=== PATIENT | male | born 1945 | race Caucasian/White ===

== ENCOUNTER 2017-06-21 09:32 | Outpatient (CLI) | payer MEDICARE ==
--- NOTE | 2017-06-21 11:17 | RAD ---
FOUR VIEWS LUMBAR SPINE: Date: 06-21-17 History: Low back pain for weeks. Pain radiates down both legs. FINDINGS: There are five non-rib bearing lumbar type vertebral bodies. Multilevel osteophytes are seen. Facet d egenerative changes are seen in the lower lumbar spine. There is mild narrowing of the L4-5 and L5-S1 intervertebral disc spaces. No fracture is seen. There is trace retrolisthesis of L2 on L3. There is no significant change and degree of retrolisthesis between flexion and extension views of the lumbar spine. No additional level of subluxation is present. IMPRESSION: 1. Multilevel degenerative changes without evidence of an acute fracture. 2. Slight retrolisthesis of L2 on L3. POS: [facility]
== END 2017-06-21 09:33 | disposition home or self-care (01) ==
LOC: TBSIIMAG 09:32
PROVIDERS: ATTEND Surgery
DX: M54.5 Low back pain (principal); M47.896 Other spondylosis, lumbar region; M43.16 Spondylolisthesis, lumbar region
CPT/HCPCS: 72110

== ENCOUNTER 2017-07-05 11:30 | Day surgery (SDC) | payer MEDICARE ==
[2017-07-04 13:45] VITALS: BMI 25.8
[2017-07-05] MEDS ORDERED: Gadobenate Dimeglumine 529 MG/1 ML (20ML VIAL) ONE (13:21)
[2017-07-05] MEDS ORDERED: Midazolam HCl 2 mg/2 ml Vial ONE (13:56)
--- NOTE | 2017-07-05 15:26 | MRI ---
LUMBAR SPINE MRI WITH AND WITHOUT CONTRAST: Date: 07/05/17 HISTORY: Lumbar radiculopathy. FINDINGS: There is multilevel Schmorl's node formation involving end plates of the low thoracic and lumbar spin e. No evidence of acute marrow edema, acute compression fracture, or subluxation. There is an extradural in location, heterogeneous, partially cystic mass which abuts the posterior co nfines of the T12 vertebral body spanning the AP dimension of the vertebral body, approximately 2.4 c m in craniocaudal dimension x 9.0 mm in AP dimension. Cephalad aspect of the mass at the site of intr insic T2 signal hyperintensity reveals enhancement. There is associated posterior displacement and ma ss effect upon the distal thoracic spinal cord with moderate AP diameter narrowing of the vertebral c anal. This does produce direct contact upon the right ventral aspect of the spinal cord. L5-S1: There is no evidence of significant central canal narrowing. Disc osteophyte complex is present along with facet hypertrophy which results in mild narrowing of the bilateral neural foramina. L4-5: There is severe central canal stenosis due to broad based disc osteophyte complex. Moderate, right gr eater than left, neural foraminal stenosis present. L3-4: There is severe central canal stenosis due to broad based disc osteophyte. Moderate to severe bilater al neural foraminal stenosis present. L2-3: Moderate central canal stenosis as a result of broad based disc osteophyte. There is moderate right a nd mild to moderate left neural foraminal narrowing. L1-2: There is mild to moderate central canal stenosis due to disc osteophyte formation. No high grade fora janee compromise. IMPRESSION: 1. Heterogeneous, partially enhancing extradural mass at the anterior aspect of the vertebral ca nal, abutting the posterior confines of T12 vertebral body, which exerts mass effect upon the termina l spinal cord. Primary considerations would include neurogenic tumor or, alternatively, an atypical a ppearance of a meningioma. 2. Multilevel prominent degenerative change producing multilevel moderate to severe central canal an d neural foraminal stenosis. POS: [facility]
== END 2017-07-05 16:18 | disposition home or self-care (01) ==
LOC: SDC/OP 11:30
PROVIDERS: ATTEND Surgery
DX: M54.16 Radiculopathy, lumbar region (principal)
CPT/HCPCS: 36415; 72158; 82565; A9579; J2250

== ENCOUNTER 2017-09-03 08:58 | Outpatient (CLI) | payer MEDICARE ==
[2017-09-03 10:32] LABS: #Eosinphils 0.4 thou/uL (0.0-0.7); #Lymphocytes 1.5 thou/uL (1.20-3.40); #Monocytes 0.4 thou/uL (0.11-0.59); #Neutrophils 5.4 thou/uL (1.40-6.50); %Basophils 0.3 % (0.0-1.0); %Eosinophils 4.9 % (0.0-10.0); %Lymphocytes 19.9 % (21.0-51.0); %Monocytes 5.7 % (0.0-10.0); %Neutrophils 69.2 % (42.0-75.0); Hemoglobin 15.4 g/dL (14.0-18.0); Mean Corpuscular HGB CONC 33.5 g/dL (32.0-36.0); Mean Corpuscular Hemoglobin 31.7 pg (27.0-31.0); Mean Corpuscular Volume 94.8 fL (78.0-98.0); Mean Platelet Volume 8.6 fL (7.4-10.4); Platelet Count 216 thou/uL (130-400); Red Blood Cell (RBC) Count 4.86 mill/uL (4.70-6.10); White Blood Cell (WBC) Count 7.7 thou/uL (4.8-10.8)
[2017-09-03 10:41] LABS: INR-International Normal Ratio 0.9; PTT 28.9 SEC (22.9-36.1); Prothrombin Time 12.1 SEC (12.0-14.7)
[2017-09-03 10:44] LABS: Anion Gap 11 mmol/L (10-20); BUN (Urea Nitrogen) 18 mg/dL (8.4-25.7); Calc. Creatinine Clearance 0 mL/min (70-130); Calcium 9.5 mg/dL (7.8-10.44); Carbon Dioxide 29 mmol/L (23-31); Chloride 107 mmol/L (98-107); Estimated GFR-MDRD 87; Glucose 94 mg/dL (83-110); Potassium 4.4 mmol/L (3.5-5.1); Sodium 143 mmol/L (136-145)
== END 2017-09-03 08:59 | disposition home or self-care (01) ==
LOC: LABBT 08:58
PROVIDERS: ATTEND Surgery
DX: Z01.812 Encounter for preprocedural laboratory examination (principal); M48.062 Spinal stenosis, lumbar region with neurogenic claudication; M54.16 Radiculopathy, lumbar region
CPT/HCPCS: 80048; 85025; 85610; 85730

== ENCOUNTER 2017-09-12 13:26 | Day surgery (SDC) | payer MEDICARE ==
[2017-09-03 09:26] VITALS: BMI 25.8
[2017-09-12] MEDS ORDERED: CEFAZOLIN/Water 2 GM/20 ML SYRINGE ONE (14:19)
[2017-09-12] MEDS ORDERED: Bacitracin Zinc Ointment 30 gm TUBE ONE (16:27)
[2017-09-12] MEDS ORDERED: Sodium Chloride 0.9% 10 ML ONE (16:27)
[2017-09-12] MEDS ORDERED: Thrombin 5000 UNITS/5 ML VIAL ONE (16:27)
[2017-09-12] MEDS ORDERED: Fentanyl 250 MCG/5 ML VIAL ONE (16:36)
[2017-09-12] MEDS ORDERED: Midazolam HCl 2 mg/2 ml Vial ONE (16:36)
[2017-09-12] MEDS ORDERED: Morphine Sulfate 2 MG/ML SYRINGE SLOW IVP PRN (18:30)
[2017-09-12] MEDS ORDERED: HYDROmorphone 2 MG/ML VIAL SLOW IVP PRN (18:30)
[2017-09-12] MEDS ORDERED: Meperidine HCl/PF 25 MG/ML VIAL SLOW IVP PRN (18:30)
[2017-09-12] MEDS ORDERED: Promethazine HCl 25 MG/ML VIAL SLOW IVP PRN (18:30)
[2017-09-12] MEDS ORDERED: HYDROcodone/Acetaminophen 7.5/325 mg Tablet PO PRN (19:32)
[2017-09-12] MEDS ORDERED: Promethazine HCl 25 MG/ML VIAL IM PRN (19:32)
[2017-09-12] MEDS ORDERED: Mag-Al 1200 mg/1200 mg/30 ML UDCUP PO PRN (19:32)
[2017-09-12] MEDS ORDERED: Milk Of Magnesia 30 ML UDCUP PO PRN (19:32)
[2017-09-12] MEDS ORDERED: Acetaminophen 325 MG TAB PO PRN (19:32)
[2017-09-12] MEDS ORDERED: traMADol HCl 50 MG TAB PO PRN (19:32)
[2017-09-12] MEDS ORDERED: Bisacodyl 10 MG SUPP PR PRN (19:32)
[2017-09-12] MEDS ORDERED: Acetaminophen/Codeine 30-300mg Tablet PO PRN (19:32)
[2017-09-12] MEDS ORDERED: Fleet Enema 133 ML BOT PR PRN (19:32)
[2017-09-12] MEDS ORDERED: Fentanyl 100 MCG/2 ML VIAL ONE (19:35)
[2017-09-12] MEDS ORDERED: chlordiazePOXIDE/Clidinium Bromide Capsule PO SCH (19:45)
[2017-09-12] MEDS ORDERED: Sodium Chloride 0.9% 1,000 ML IV SCH (19:45)
[2017-09-12] MEDS ORDERED: Rosuvastatin 20 MG TAB PO SCH (21:00)
[2017-09-12] MEDS ORDERED: Zolpidem Tartrate 5 MG TAB PO SCH (21:00)
[2017-09-12] MEDS: Brimonidine Tartrate 0.2% Ophth Soln 5 ml Bottle EA EYE SCH (21:59)
[2017-09-12] MEDS: Ketorolac Tromethamine 0.5% Ophth Soln 3 ml Bottle L EYE SCH (21:59)
[2017-09-12] MEDS: Timolol 0.5% Ophth Soln 5 ml Bottle EA EYE SCH (22:00)
[2017-09-12] MEDS: CEFAZOLIN/Water 2 GM/20 ML SYRINGE SLOW IVP SCH (22:49)
[2017-09-12] MEDS: tiZANidine HCl 4 MG TAB PO PRN (22:50)
[2017-09-13 04:00] VITALS: TEMP 97.9
[2017-09-13] MEDS: tiZANidine HCl 4 MG TAB PO PRN (07:31)
[2017-09-13] MEDS: CEFAZOLIN/Water 2 GM/20 ML SYRINGE SLOW IVP SCH (07:31)
[2017-09-13 07:40] VITALS: BP 129/67
[2017-09-13] MEDS: Ketorolac Tromethamine 0.5% Ophth Soln 3 ml Bottle L EYE SCH (08:22)
[2017-09-13] MEDS: Brimonidine Tartrate 0.2% Ophth Soln 5 ml Bottle EA EYE SCH (08:22)
[2017-09-13] MEDS: Timolol 0.5% Ophth Soln 5 ml Bottle EA EYE SCH (08:23)
--- NOTE | 2017-09-13 09:35 | PRG ---
DATE OF SERVICE: 09/13/2017 Mr. Mccauley is postoperative day 1 from L2-5 laminectomy. He has had improvement in his leg pain. He is mobilizing with good strength in his lower extremities. We went over intra and postoperative i ssues. He will be dismissed. He will hold his aspirin for 1 week.
--- NOTE | 2017-09-13 10:04 | OP ---
DATE OF SURGERY: 09/12/2017. OR: 11 WOUND TYPE: Type 1 wound. SURGEON: Alvaro Allen M.D. EDUCATION AND OUTREACH COORDINATOR: Sammy Gautam PA-C. PREPROCEDURE DIAGNOSIS: Multilevel lumbar stenosis with low back and leg pain. POSTPROCEDURE DIAGNOSIS: Multilevel lumbar stenosis with low back and leg pain. PROCEDURES PERFORMED: L2-L5 decompressive laminectomy, partial facetectomy, and foraminotomies over the L2, L3, L4, L5 nerve roots. DESCRIPTION OF PROCEDURE: After informed consent was obtained from the patient, the patient was brou ght to OR. Proper patient pause and identification was carried out. He was placed in excellent gene ral endotracheal anesthesia and positioned prone on the OR table. All appropriate points were padded . We identified the L2, L3, L4, L5 dorsal spines. A linear austen was made. This region was sterilel y cleansed, prepared, and draped. Proper patient pause and identification was carried out. The woun d was then opened with a combination of sharp, monopolar and blunt dissection, and localization film confirmed our area of interest following exposure from L2-L5. We then performed L2, L3, L4, L5 bryan ectomies, partial facetectomies, foraminotomies. We had excellent decompression of the common dural tube and nerve roots. There was no spinal fluid leak. The wound was copiously irrigated throughout and we maximized hemostasis. The wound was then closed in anatomic layers following the sprinkling o f vancomycin powder. The patient then emerged from anesthesia.
== END 2017-09-13 10:21 | disposition home or self-care (01) ==
LOC: SDC 13:26 → SURG B 19:32 → SDC 09-13 10:21
PROVIDERS: ATTEND Surgery
PROC: 01NB0ZZ Release Lumbar Nerve, Open Approach (ICD-10-PCS; principal; 2017-09-12)
DX: M48.062 Spinal stenosis, lumbar region with neurogenic claudication (principal); Z79.82 Long term (current) use of aspirin; Z79.899 Other long term (current) drug therapy
CPT/HCPCS: 76001; 96374; A4216; J2250; J2550; J3010; J3370; J3490

== ENCOUNTER 2018-06-17 14:23 | Outpatient (CLI) | payer MEDICARE ==
[~2018-06-17 14:23] MED LIST: Gadobenate Dimeglumine 529 MG/1 ML (20ML VIAL) ONE
--- NOTE | 2018-06-17 15:49 | RAD ---
XR Lumbar Spine Min 4 View: 06/17/2018 12:00 AM CLINICAL INDICATION: Lumbar stenosis with claudication COMPARISON: 06/21/2017 FINDINGS: Fracture:No fracture. Arthropathy:Multilevel endplate degenerative changes marginal osteophyte formation disc space narrowi ng. Multilevel degenerative facet sclerosis/hypertrophy present. Evaluation of neutral, flexion and extension lateral views reveals mild retrolisthesis of L2 on 3 whi ch does not significantly correct with flexion imaging.Trace retrolisthesis at the L1-2 level. Mild right convex curvature centered at the upper lumbar spine. IMPRESSION: 1. Multilevel degenerative change of the lumbar spine. There is mild retrolisthesis of L2 on 3, witho ut significant translational motion.
--- NOTE | 2018-06-17 16:13 | MRI ---
Exam: MRI lumbar spine with and without contrast HISTORY: Neurogenic claudication. Lumbar stenosis. Previous laminectomy. COMPARISON: 07/05/2017 FINDINGS: Appropriate T1 marrow signal intensity of the lumbar vertebra. Lumbar spine vertebral body height is maintained. No fracture. Redemonstration of 3 mm of retrolisthesis of L2 upon L3. No significant STIR hyperintensity to suggest vertebral body edema or ligamentous injury Appropriate signal intensity of the visualized paraspinal muscles and visualized solid organs Conus medullaris terminates at the inferior aspect of L1 On the postcontrast images, there is no pathologic enhancement of the vertebra. There is no abnormal enhancement with regards to the contents of the central spinal canal including the cauda equina articularis. There is redemonstration of a extradural T2 mixed signal intensity lesion, measuring 2.3 cm cranial caudal x 1.1 cm mediolateral x 0.7 cm anterior-posterior. This lesion is posterior to the T12 vertebral body. Findings are similar to the previous examination. On the postcontrast images, there is minimal enhancement of a intrinsically T2 and STIR hyperintense component. Differential considerations have not changed and a neurogenic tumor or possibly meningioma should still be conside red. Interval laminectomy at L2-L3, L3-L4, L4-L5 and L5-S1. T11-T12 probable calcification of the disc. No significant central canal stenosis T12 vertebral body, persistent moderate central canal stenosis secondary to the aforementioned anter ior epidural lesion. T12-L1: No significant central canal stenosis or foraminal narrowing L1-L2: Minimal generalized disc bulge without significant central canal stenosis. Mild bilateral fora janee narrowing. L2-L3: Mild loss of disc space height. Generalized disc bulge without significant central canal steno sis. Laminectomy defect is identified. Moderate right and left neural foraminal narrowing L3-L4: Mild loss of disc space height. Minimal generalized disc bulge without significant central can al stenosis. [id number] central canal stenosis predominantly due to posterior element hypertrophy. 5 mm right and 3 mm left synovial cyst contributing to the overall degree of central can al stenosis. Laminectomy defect is identified. Moderate to severe bilateral neural foraminal narrowing L4-L5: Desiccation and moderate loss of disc space height. Mild posterior element hypertrophy. There is a small right-sided synovial cyst measuring 0.5 x 0.3 cm. Synovial cyst abuts the traversing right L5 nerve root. Overall there is mild central canal stenosis. Moderate to severe right and left foraminal narrowing. L5-S1: No significant central canal stenosis. Mild bilateral foraminal narrowing. IMPRESSION: 1. Interval laminectomy from L2-L3 through L5-S1. There is no significant central canal stenosis at t he surgical site. However, there is significant bilateral neural foraminal narrowing at multiple levels as described above. 2. Redemonstration extra-axial mass as described above. No significant change. Differential considera tions again include a neurogenic tumor versus meningioma. Transcribed Date/Time: 06/17/2018 5:05 PM
== END 2018-06-17 14:24 | disposition home or self-care (01) ==
LOC: TBSIIMAG 14:23
PROVIDERS: ATTEND Surgery
DX: M48.062 Spinal stenosis, lumbar region with neurogenic claudication (principal); M47.816 Spondylosis without myelopathy or radiculopathy, lumbar region; M43.16 Spondylolisthesis, lumbar region; M48.07 Spinal stenosis, lumbosacral region; Z98.890 Other specified postprocedural states
CPT/HCPCS: 72110; 72158; 82565

== ENCOUNTER 2018-08-22 22:43 | Emergency (ER) | payer MEDICARE ==
[2018-08-22 23:11] LABS: #Basophils 0.1 thou/uL (0.0-0.2); #Eosinphils 0.3 thou/uL (0.0-0.7); #Lymphocytes 3.6 thou/uL (1.20-3.40); #Monocytes 0.8 thou/uL (0.11-0.59); %Basophils 0.9 % (0.0-1.0); %Eosinophils 2.3 % (0.0-10.0); %Lymphocytes 26.2 % (21.0-51.0); %Monocytes 5.5 % (0.0-10.0); %Neutrophils 65.2 % (42.0-75.0); Hemoglobin 14.3 g/dL (14.0-18.0); Mean Corpuscular Volume 93.9 fL (78.0-98.0); Mean Platelet Volume 9.2 fL (7.4-10.4); Platelet Count 267 thou/uL (130-400); RBC Distribution Width 12.4 % (11.5-14.5); Red Blood Cell (RBC) Count 4.62 mill/uL (4.70-6.10); White Blood Cell (WBC) Count 13.8 thou/uL (4.8-10.8)
[2018-08-22 23:34] LABS: ALT (SGPT) 28 U/L (8-55); AST (SGOT) 22 U/L (5-34); Albumin 4.1 g/dL (3.4-4.8); Alkaline Phosphatase 59 U/L (40-150); Anion Gap 14 mmol/L (10-20); BUN (Urea Nitrogen) 23 mg/dL (8.4-25.7); Bilirubin, Total 0.8 mg/dL (0.2-1.2); Calc. Creatinine Clearance 0 mL/min (70-130); Calcium 9.8 mg/dL (7.8-10.44); Carbon Dioxide 24 mmol/L (23-31); Chloride 105 mmol/L (98-107); Estimated GFR-MDRD 57; Globulin 2.3 g/dL (2.4-3.5); Glucose 163 mg/dL (83-110); Potassium 3.7 mmol/L (3.5-5.1); Protein, Total 6.4 g/dL (5.8-8.1); Sodium 139 mmol/L (136-145)
[2018-08-22] MEDS ORDERED: Ketorolac Tromethamine 30 MG/ML VIAL ONE (23:34)
--- NOTE | 2018-08-22 23:39 | RAD ---
EXAM: Right femur 2 views: HISTORY: Injury from trauma COMPARISON: None FINDINGS: Osteoarthrosis changes right hip joint and right knee joint Degenerative changes. No acute fracture or dislocation or other significant acute osseous abnormality. IMPRESSION: No significant acute process.
[2018-08-22] MEDS ORDERED: Methocarbamol 1 GM in Sodium Chloride 0.9% 250 ML 250 ML IVPB SCH (23:59)
[2018-08-23 01:38] LABS: Bilirubin Small (Negative); Blood, Urine Negative (Negative); Clarity CLEAR (Clear); Glucose, Urine (Dipstick) Negative (Negative); Leukocyte Negative (Negative); Nitrite Negative (Negative); Protein, Urine (Dipstick) Negative (Neg-Trace); Urobilinogen 0.2 mg/dL (0.2-1.0)
[2018-08-23] MEDS ORDERED: traMADol HCl 50 MG TAB ONE (02:33)
== END 2018-08-23 03:00 | disposition home or self-care (01) ==
LOC: ERS 22:43
DX: M79.604 Pain in right leg (principal); R55 Syncope and collapse; Z79.82 Long term (current) use of aspirin; Z79.899 Other long term (current) drug therapy; X50.1XXA Overexertion from prolonged static or awkward postures, initial encounter
CPT/HCPCS: 36416; 51701; 80053; 81003; 84484; 85025; 93005; 94760; 96365; 96375; J1885; J2800; J7050

== ENCOUNTER 2018-08-27 13:25 | Outpatient (CLI) | payer MEDICARE ==
--- NOTE | 2018-08-27 15:27 | MRI ---
MRI Lower Ext No Jt Rt WO Con History: 76.311a tear of right hamstring Comparison: Radiograph femur August 22, 2018 Findings: Bones: No fracture. No malalignment. No osseous edema. Muscles: There is a rupture of the adductor americo muscle with extensive intramuscular and perimuscul ar hemorrhage. There is also partial tears of the biceps femoris long and short heads with intramuscular tear of the semitendinosus muscles. Intramuscular lipoma of the vastus intermedius muscle. Tendons: The common hamstring and cement tendinosis origins from the ischium are normal. There is par tial avulsion of the abductor americo from the ischium. Full-thickness tear of both the semitendinosus and long head biceps femoris tendons 6 cm from the ischial origin with a 4 cm gap. Impression: 1. Rupture of the proximal myotendinous junction adductor americo with large intramuscular hematoma. 2. Full-thickness tear of the biceps femoris long head and semitendinosus tendons with intramuscular delamination approximately 6 cm distal from the ischial origin with a 4 cm gap.
== END 2018-08-27 13:26 | disposition home or self-care (01) ==
LOC: SCSMRI 13:25
PROVIDERS: ATTEND Pediatrics Sports Medicine
DX: S76.311A Strain of muscle, fascia and tendon of the posterior muscle group at thigh level, right thigh, initial encounter (principal); S46.112A Strain of muscle, fascia and tendon of long head of biceps, left arm, initial encounter

== ENCOUNTER 2018-09-05 09:58 | Outpatient (CLI) | payer MEDICARE ==
--- NOTE | 2018-09-05 11:20 | ULT ---
RIGHT LOWER EXTREMITY VENOUS DUPLEX ULTRASOUND WITH COLOR AND SPECTRAL DOPPLER IMAGING: Date: 09/05/18 HISTORY: Edema. TECHNIQUE: Exam performed from groin to ankle, including visualized greater saphenous, common femoral, superfici al femoral, profunda femoral, popliteal, trifurcation, and posterior tibial vein regions. FINDINGS: There is phasic flow at all levels with normal compressibility and normal augmentation. No intralumin al thrombus. IMPRESSION: No evidence for deep venous thrombosis. POS: [facility]
== END 2018-09-05 09:59 | disposition home or self-care (01) ==
LOC: ULT 09:58
PROVIDERS: ATTEND Pediatrics Sports Medicine
DX: R20.8 Other disturbances of skin sensation (principal)

== ENCOUNTER 2018-09-09 12:49 | Outpatient (CLI) | payer MEDICARE ==
[2018-09-09] MEDS ORDERED: Iopamidol 370 76% 100 ML VIAL ONE (13:56)
--- NOTE | 2018-09-09 15:49 | CT ---
CTA ANGIO AORTA WITH BILATERAL RUNOFF WITH IV CONTRAST AND 3D REFORMATTED IMAGIN09/09/18 CONTRAST: 95 mL of Isovue 370. INDICATION: History of right leg injury with concern for deep venous thrombosis. Attempt was made to do an approp riate timing to evaluate the veins with a CTV; however, the timing was not adequate. FINDINGS: The visualized vasculature of the right lower extremity, although demonstraings mild to moderate athe rosclerotic calcification, no hemodynamically significant stenosis is evident. There is three vessel runoff to the level of the right ankle. There is some subcutaneous edema of the foreleg and distal right ankle. There is a peripherally enhancing suspected hematoma within the proximal right hamstring musculature measuring 3.9 x 5.9 x 9.9 cm. There is an intramuscular lipoma within the vastus lateralis measuring 3.8 x 10 cm. No acute osseous abnormality is evident. There is mild degenerative arthrosis of both knees. There is mild vascular calcification involving the arterial structures of the left lower extremity. N o hemodynamically significant stenosis evident. There is three vessel runoff to the level of the ankl e. IMPRESSION: 1. Large hematoma within the posterior thigh musculature likely related to a high grade muscular strain. Would recommend ultrasound follow-up to document resolution of this intramuscular hematoma. 2. Intramuscular lipoma of the vastus lateralis. 3. No secondary signs to suggest presence of deep venous thrombosis in the right lower extremity . There is mild subcutaneous edema of the lower foreleg and ankle. The timing of the contrast bolus o n examination does limit the evaluation for DVT in the right lower extremity. If there is continued c linical concern, follow-up right lower extremity Doppler venous ultrasound may be helpful. I know the patient underwent an examination on 09/05/18. If there is continued concern, a repeat examination is recommended. 4. Other chronic findings as above. POS: [facility]
== END 2018-09-09 12:50 | disposition home or self-care (01) ==
LOC: CT 12:49
PROVIDERS: ATTEND Pediatrics Sports Medicine
DX: M79.661 Pain in right lower leg (principal); R20.8 Other disturbances of skin sensation; R09.89 Other specified symptoms and signs involving the circulatory and respiratory systems; M79.89 Other specified soft tissue disorders; R89.9 Unspecified abnormal finding in specimens from other organs, systems and tissues; S70.11XA Contusion of right thigh, initial encounter; D17.9 Benign lipomatous neoplasm, unspecified; I70.90 Unspecified atherosclerosis
CPT/HCPCS: 75635; 82565; Q9967

== ENCOUNTER 2018-09-16 16:08 | Outpatient (CLI) | payer MEDICARE ==
--- NOTE | 2018-09-16 16:42 | ULT ---
Venous duplex sonogram right lower extremity HISTORY: Right leg pain and edema. FINDINGS: The right common femoral vein and greater saphenous junction were evaluated along with the femoral, deep femoral, popliteal, and posterior tibial veins. There is good color and spectral Doppler flow, compression, and augmentation. IMPRESSION: No sonographic evidence of DVT within the right lower extremity.
== END 2018-09-16 16:09 | disposition home or self-care (01) ==
LOC: SCSULT 16:08
PROVIDERS: ATTEND Orthopaedic Surgery
DX: S76.311A Strain of muscle, fascia and tendon of the posterior muscle group at thigh level, right thigh, initial encounter (principal); M79.661 Pain in right lower leg

== ENCOUNTER 2019-09-03 08:33 | Outpatient (CLI) | payer MEDICARE ==
--- NOTE | 2019-09-03 10:18 | RAD ---
RADIOGRAPH LUMBAR SPINE 4 VIEWS: DATE: 09/03/2019 HISTORY: 74-year-old male with low back pain and lumbar radiculopathy COMPARISON: 06/17/2018 TECHNIQUE: AP view. 3 lateral views in neutral, flexion, and extension. FINDINGS: 5 lumbar-type vertebrae. Vertebral body heights are maintained. Midline laminectomy defects at L2-3, L3-4, and L4-5. Exaggerated lordosis. T12-L1: Small endplate marginal osteophytes. Mild disc space narrowing. Slight retrolisthesis of T12 on L1. L1-2: Disc space maintained. Retrolisthesis of L1 on L2. L2-3: Mild to moderate disc space narrowing. Anterior endplate osteophytes protruding into prevertebr al space. Retrolisthesis of L2 on L3. L3-4: Mild disc space narrowing. Anterior endplate osteophytes protruding into prevertebral space. L4-5: Mild to moderate disc space narrowing. L5-S1: Mild disc space narrowing. Facet DJD at mid and lower levels. No instability between flexion and extension. No interval change. IMPRESSION: 1) lumbar spondylosis with multilevel degenerative disc disease and facet osteoarthrosis. 2) status post midline laminectomies at multiple levels. 3) no instability. 4) no interval change.
--- NOTE | 2019-09-03 11:16 | MRI ---
MR the lumbar spine with and without contrast: 09/03/2019 History: Left buttock and leg pain, back pain, history of back surgery COMPARISON: 06/17/2018 TECHNIQUE: Multiplanar multisequence MR images were obtained of lumbar spine with and without IV cont rast FINDINGS: On the basis of 5 lumbar type vertebral bodies, conus medullaris terminates at theL1 level. Sagittal STIR imaging demonstrates no focal area of osseous marrow edema. Multilevel bilateral valentin ctomy change again noted from L2 through L5. There is an anterior epidural mass posterior to the T12 vertebral body measuring 8 x 9 x 21 mm, uncha nged when compared to prior imaging dating back to 07/05/2017. This mass is heterogeneous on T2 imaging with superior T2 hyperintensity. It is of low signal intensity on the precontrast T1-weighted imaging. As seen on the prior examination there is minimal internal enhancement associated with the superior aspect of this lesion. T12-L1:There is disc space narrowing with disc desiccation and mild bilateral facet hypertrophy. No s ignificant central canal or neural foraminal stenosis. L1-2:Bilateral facet hypertrophy, left greater than right. Disc space narrowing with disc dislocation and mild anterior osteophyte. No significant central canal or neural foraminal stenosis. L2-3:There is disc space narrowing with disc desiccation, anterior osteophyte formation, and mild dis c bulge. No central canal stenosis. Bilateral facet hypertrophy present with mild left and moderate right neural foraminal stenosis. L3-4:Prominent bilateral facet hypertrophy with small bilateral synovial cysts, left larger than righ t, each measuring less than 5 mm. Disc space narrowing with disc desiccation and mild disc bulge. No significant central canal stenosis. Severe bilateral neural foraminal stenosis, left greater than right. L4-5:There is disc space narrowing with disc desiccation and vacuum disc formation. There is mild dis c bulge present. A small left paracentral disc extrusion with 1.2 cm of superior migration noted, new when compared to the prior exam. This causes a mild degree of left lateral recess stenosis just s uperior to the axial level of the L4-5 intervertebral disc. Moderate/severe bilateral neural foraminal stenosis present. L5-S1:There is disc space narrowing, disc desiccation, and vacuum disc formation. There is a central annular tear with a small central disc protrusion. Mild bilateral facet hypertrophy. No significant central canal or neural foraminal stenosis. The visualized retroperitoneal structures demonstrate no acute findings. The postcontrast imaging demonstrates no abnormal enhancement involving the nerve roots of the cauda equina. There is postoperative enhancement of the posterior paraspinal soft tissues of the lower lumbar spine status post multilevel bilateral laminectomy. IMPRESSION: Multilevel postoperative and degenerative change as detailed above. There is a small new left paracen tral disc extrusion with superior migration at L4-5 causing a degree of the left lateral recess stenosis. There is a stable nonspecific anteriorly epidural mass posterior to the T12 vertebral body with minim al internal enhancement.
[2019-09-03] MEDS ORDERED: Magnevist 469MG/ML 20 ML VIAL ONE (14:17)
== END 2019-09-03 08:34 | disposition home or self-care (01) ==
LOC: TBSIIMAG 08:33
PROVIDERS: ATTEND Surgery
DX: M54.5 Low back pain (principal); M79.606 Pain in leg, unspecified; M51.36 Other intervertebral disc degeneration, lumbar region; M47.816 Spondylosis without myelopathy or radiculopathy, lumbar region; M51.26 Other intervertebral disc displacement, lumbar region; M48.061 Spinal stenosis, lumbar region without neurogenic claudication; Z98.890 Other specified postprocedural states
CPT/HCPCS: 72110; 72158; 82565; A9579

== ENCOUNTER 2019-10-16 05:14 | Emergency (ER) | payer MEDICARE ==
[2019-10-16 05:44] LABS: #Basophils 0.1 thou/uL (0.0-0.2); #Eosinphils 0.3 thou/uL (0.0-0.7); #Lymphocytes 2.4 thou/uL (1.20-3.40); #Monocytes 0.6 thou/uL (0.11-0.59); #Neutrophils 5.4 thou/uL (1.40-6.50); %Basophils 0.9 % (0.0-1.0); %Eosinophils 3.4 % (0.0-10.0); %Lymphocytes 27.5 % (21.0-51.0); %Monocytes 6.3 % (0.0-10.0); %Neutrophils 61.8 % (42.0-75.0); Hemoglobin 15.6 g/dL (14.0-18.0); Mean Corpuscular HGB CONC 32.4 g/dL (32.0-36.0); Mean Corpuscular Hemoglobin 31.3 pg (27.0-31.0); Mean Corpuscular Volume 96.4 fL (78.0-98.0); Mean Platelet Volume 9.2 fL (7.4-10.4); Platelet Count 217 thou/uL (130-400); RBC Distribution Width 12.6 % (11.5-14.5); White Blood Cell (WBC) Count 8.7 thou/uL (4.8-10.8)
[2019-10-16 06:03] LABS: ALT (SGPT) 25 U/L (8-55); AST (SGOT) 21 U/L (5-34); Albumin 4.3 g/dL (3.4-4.8); Alkaline Phosphatase 68 U/L (40-110); Anion Gap 9 mmol/L (10-20); BUN (Urea Nitrogen) 16 mg/dL (8.4-25.7); Bilirubin, Total 0.6 mg/dL (0.2-1.2); CK (CPK) 136 U/L (30-200); Calc. Creatinine Clearance 0 mL/min (70-130); Calcium 9.2 mg/dL (7.8-10.44); Carbon Dioxide 30 mmol/L (23-31); Chloride 106 mmol/L (98-107); Estimated GFR-MDRD 72; Globulin 2.2 g/dL (2.4-3.5); Glucose 122 mg/dL (83-110); Lipase 19 U/L (8-78); Potassium 4.3 mmol/L (3.5-5.1); Protein, Total 6.5 g/dL (5.8-8.1); Sodium 141 mmol/L (136-145)
--- NOTE | 2019-10-16 07:52 | RAD ---
XR Chest 1 View Portable History: Chest pain Comparison: Radiograph 2017 Findings: Lungs are relatively clear. Pulmonary arteries are enlarged. Heart size upper limits of nor mal. No acute osseous abnormality. Impression: No acute intrathoracic abnormality.
--- NOTE | 2019-10-24 15:06 | EKG ---
Test Reason : Blood Pressure : / mmHG Vent. Rate : 056 BPM Atrial Rate : 056 BPM P-R Int : 214 ms QRS Dur : 106 ms QT Int : 426 ms P-R-T Axes : 030 039 039 degrees QTc Int : 411 ms Sinus bradycardia with 1st degree A-V block Otherwise normal ECG Confirmed by LEVI NUNEZ M.D. ([id number]), commercial production editor RAMOS BAIG ([id number]) on 10/24/2019 3:05:46 PM Referred By: Confirmed By:LEVI NUNEZ M.D.
== END 2019-10-16 06:10 | disposition left against medical advice (07) ==
LOC: ERS 05:14
DX: R07.9 Chest pain, unspecified (principal); I50.9 Heart failure, unspecified; I25.2 Old myocardial infarction; Z79.899 Other long term (current) drug therapy; Z79.82 Long term (current) use of aspirin
CPT/HCPCS: 71045; 80053; 82550; 83690; 84484; 85025; 93005

== ENCOUNTER 2019-12-21 07:42 | Outpatient (CLI) | payer MEDICARE, OTHER ==
[2019-12-21 11:39] LABS: Hemoglobin 16.8 g/dL (14.0-18.0); Mean Corpuscular HGB CONC 32.7 g/dL (32.0-36.0); Mean Corpuscular Hemoglobin 31.9 pg (27.0-31.0); Mean Corpuscular Volume 97.5 fL (78.0-98.0); Mean Platelet Volume 9.4 fL (7.4-10.4); Platelet Count 247 thou/uL (130-400); RBC Distribution Width 12.1 % (11.5-14.5); Red Blood Cell (RBC) Count 5.28 mill/uL (4.70-6.10); White Blood Cell (WBC) Count 9.5 thou/uL (4.8-10.8)
[2019-12-21 11:40] LABS: INR-International Normal Ratio 0.9; PTT 26.4 sec (22.9-36.1); Prothrombin Time 12.2 sec (12.0-14.7)
[2019-12-21 11:55] LABS: Chloride 106 mmol/L (98-107); Sodium 141 mmol/L (136-145)
[2019-12-21 11:56] LABS: Calcium 8.9 mg/dL (7.8-10.44); Glucose 78 mg/dL (83-110)
[2019-12-21 11:58] LABS: Anion Gap 15 mmol/L (10-20); Carbon Dioxide 24 mmol/L (23-31)
[2019-12-21 11:59] LABS: Calc. Creatinine Clearance 0 mL/min (70-130); Estimated GFR-MDRD 72
[2019-12-21 12:00] LABS: BUN (Urea Nitrogen) 21 mg/dL (8.4-25.7)
[2019-12-21 16:37] LABS: SARS-CoV-2 MS2 Positive; SARS-CoV-2 N Gene Negative; SARS-CoV-2 S Gene Negative; SARS-CoV-2 by NAA Not Detected (NotDetected); SARS-CoV-2 orf1ab Negative
== END 2019-12-21 07:43 | disposition home or self-care (01) ==
LOC: LABBT 07:42
PROVIDERS: ATTEND Surgery
DX: Z01.818 Encounter for other preprocedural examination (principal); Z20.828 Contact with and (suspected) exposure to other viral communicable diseases; M51.16 Intervertebral disc disorders with radiculopathy, lumbar region
CPT/HCPCS: 80048; 85027; 85610; 85730; 93005; U0003; 87635; 93010

== ENCOUNTER 2019-12-24 07:15 | Day surgery (SDC) | payer MEDICARE ==
[2019-12-23 10:43] VITALS: BMI 25.8
[2019-12-24] MEDS ORDERED: Sodium Chloride 0.9% 0 ML ONE (09:20)
[2019-12-24] MEDS ORDERED: Thrombin 5000 UNITS/5 ML VIAL ONE (09:20)
[2019-12-24] MEDS ORDERED: HYDROmorphone 2 MG/ML VIAL ONE (09:28)
[2019-12-24] MEDS ORDERED: Fentanyl 100 MCG/2 ML VIAL ONE (09:28)
[2019-12-24] MEDS ORDERED: Rocuronium Bromide 10 MG/ML (10ML VIAL) ONE (10:47)
[2019-12-24] MEDS ORDERED: PHENYLEPHRINE-NS 100 MCG/ML 10 ML SYRINGE ONE (10:47)
[2019-12-24] MEDS ORDERED: Lidocaine 1% PF 5 ML VIAL ONE (10:47)
[2019-12-24] MEDS ORDERED: PROPOFOL 200 MG/20 ML VIAL ONE (10:47)
[2019-12-24] MEDS ORDERED: Ondansetron PF 4 MG/2 ML Vial ONE (10:47)
[2019-12-24] MEDS ORDERED: Dexamethasone 20 MG/5 ML VIAL ONE (10:47)
[2019-12-24] MEDS ORDERED: HYDROcodone/Acetaminophen 7.5/325 mg Tablet PO PRN (12:07)
[2019-12-24] MEDS ORDERED: diphenhydrAMINE 25 MG CAP PO PRN (12:07)
[2019-12-24] MEDS ORDERED: Acetaminophen/Codeine 30-300mg Tablet PO PRN (12:07)
[2019-12-24] MEDS ORDERED: tiZANidine HCl 4 MG TAB PO PRN (12:07)
[2019-12-24] MEDS ORDERED: Morphine 2 MG/ML VIAL SLOW IVP PRN (12:07)
[2019-12-24] MEDS ORDERED: Bisacodyl 10 MG SUPP PR PRN (12:07)
[2019-12-24] MEDS ORDERED: traMADol HCl 50 MG TAB PO PRN (12:07)
[2019-12-24] MEDS ORDERED: Acetaminophen 325 MG TAB PO PRN (12:07)
[2019-12-24] MEDS ORDERED: Ondansetron PF 4 MG/2 ML Vial IVP PRN (12:07)
[2019-12-24] MEDS ORDERED: chlordiazePOXIDE/Clidinium Bromide Capsule PO PRN (12:09)
[2019-12-24] MEDS ORDERED: Doxycycline 100 MG CAP PO PRN (12:25)
[2019-12-24] MEDS: Sodium Chloride 0.9% 1,000 ML IV SCH ×2 (16:59→23:19)
[2019-12-24] MEDS: Timolol 0.5% Ophth Soln 5 ml Bottle EA EYE SCH ×2 (17:00→20:23)
[2019-12-24] MEDS: Brimonidine Tartrate 0.2% Ophth Soln 5 ml Bottle EA EYE SCH ×2 (17:00→20:23)
[2019-12-24] MEDS: CEFAZOLIN 2 GM in Premix Bag 1 BAG IVPB SCH (18:05)
[2019-12-24] MEDS ORDERED: Zolpidem Tartrate 5 MG TAB PO SCH (21:00)
[2019-12-25] MEDS: CEFAZOLIN 2 GM in Premix Bag 1 BAG IVPB SCH (01:49)
--- NOTE | 2019-12-25 06:36 | OP ---
DATE OF PROCEDURE: 12/24/2019 INVENTORY ASSISTANT: Mariam Jeffers PA-C PREPROCEDURE DIAGNOSIS: Low back and left leg pain with left L5 radiculopathy. POSTPROCEDURE DIAGNOSIS: Low back and left leg pain with left L5 radiculopathy. PROCEDURES PERFORMED: 1. Left L4-L5 revision hemilaminotomy, foraminotomy, and diskectomy. 2. Use of operating microscope for microdissection. DESCRIPTION OF PROCEDURE: After informed consent was obtained from the patient, the patient was brought to the OR. Proper patient, pause, and identification were carried out. He was placed under excellent general endotracheal anesthesia and positioned prone on the OR table. All appropriate points were padded. A small incision was drawn out over the L4-L5 segment. This region was sterilely cleansed, prepared, and draped. Proper patient, pause, and identification were carried out. The wound was then opened with combination of sharp, monopolar, and blunt dissection and the L4, L5 left facet complex and prior geovanni-laminar region was identified. Localization film confirmed our area of interest and performed a left L4-L5 revision hemilaminotomy and foraminotomy. Microscope was brought in for microdissection. Small amount of CSF leaked in the region of the axilla of the left L4 nerve root, where there was quite adherent scar tissue. This ceased essentially with packing. Copious irrigation occurred throughout. We then identified disk extrusion to left L5 lateral recess, which was removed. Excellent decompression of the left L5 nerve root was performed and identified with fragments of disk material removed. The microscope was used for microdissection. Copious irrigation occurred throughout as did maximizing hemostasis. The wound was then closed in anatomic layers following sprinkling of vancomycin powder. The patient emerged from anesthesia. Job ID: [id number]
[2019-12-25 08:19] VITALS: TEMP 97.8
[2019-12-25] MEDS ORDERED: Tamsulosin HCl 0.4 MG CAP PO SCH (09:00)
[2019-12-25] MEDS ORDERED: Ubidecarenone 50 MG CAP PO SCH (09:00)
[2019-12-25] MEDS ORDERED: Bromfenac Sodium [Prolensa] 3 ML Drops EA EYE SCH (09:00)
[2019-12-25] MEDS: Brimonidine Tartrate 0.2% Ophth Soln 5 ml Bottle EA EYE SCH (09:16)
[2019-12-25] MEDS: Timolol 0.5% Ophth Soln 5 ml Bottle EA EYE SCH (09:17)
--- NOTE | 2019-12-25 11:57 | DIS ---
DATE OF ADMISSION: 12/24/2019 DATE OF DISCHARGE: 12/25/2019 Procedure Left L4-L5 revision- hemilaminectomy and diskectomy The patient is a 74-year-old male, recently evaluated in the office by Dr. Allen for progressive back and leg pain and found to have recurrent stenosis at left L4-L5 requiring revision of his prior hemilaminectomy and diskectomy. Following the procedure, he was transitioned to the Med/Surg floor, where his pain was well controlled with p.o. medications, he was tolerating a regular diet and voiding appropriately. He did have a small CSF leak intraoperatively and had a mild postoperative headache on postoperative day #1. He reports this is not significantly bothersome and he was ambulating throughout the hallways without any difficulty. He did not have any postoperative incisional issues. We will plan to dismiss the patient to home. I have discussed home care and precautions and we will follow up with the patient in 2 weeks. He was provided with scripts for Tylenol No. 3, tramadol, and tizanidine, which were sent to his pharmacy in [place]. BLANKET [employer] AWARxE checked prior to discharge by Dr. Allen's Team. Job ID: [id number] MTDD
[2019-12-25 15:59] VITALS: BP 138/72
[2019-12-25] MEDS ORDERED: Rosuvastatin 20 MG TAB PO SCH (21:00)
== END 2019-12-25 12:55 | disposition home or self-care (01) ==
LOC: SDC 07:15 → SURG B 15:27 → SDC 12-25 12:55
PROVIDERS: ATTEND Surgery
PROC: 0SB20ZZ Excision of Lumbar Vertebral Disc, Open Approach (ICD-10-PCS; principal; 2019-12-24)
PROC: 01NB0ZZ Release Lumbar Nerve, Open Approach (ICD-10-PCS; 2019-12-24)
DX: M51.16 Intervertebral disc disorders with radiculopathy, lumbar region (principal); M48.061 Spinal stenosis, lumbar region without neurogenic claudication; R51.9 Headache, unspecified; Z79.82 Long term (current) use of aspirin; Z79.899 Other long term (current) drug therapy; Z95.1 Presence of aortocoronary bypass graft; Z95.5 Presence of coronary angioplasty implant and graft
CPT/HCPCS: 76000; J0690; J1100; J1170; J2405; J2704; J3010; J3370; J3490

== ENCOUNTER 2022-11-26 06:36 | Observation (INO) | payer MEDICARE ==
[2022-11-16 11:47] VITALS: BMI 26.9
[2022-11-26] MEDS ORDERED: Midazolam HCl 2 mg/2 ml Vial ONE (08:31)
[2022-11-26] MEDS ORDERED: fentaNYL 50 mcg/mL 1 mL Vial ONE ×5 (08:31→12:56)
[2022-11-26] MEDS ORDERED: EPINEPHrine 1 MG/ML AMP ONE (08:31)
[2022-11-26] MEDS ORDERED: Lidocaine 1% (PF) 30 ML VIAL ONE ×2 (08:31→09:13)
[2022-11-26] MEDS ORDERED: Bupivacaine PF 0.5% 30 ML VIAL ONE ×2 (08:31→09:13)
[2022-11-26] MEDS ORDERED: Vancomycin (BATCH) 1.5 GRAM/300 ML BAG ONE (08:38)
[2022-11-26] MEDS ORDERED: Sodium Chloride 0.9% 100 ML ONE ×2 (08:38→09:30)
[2022-11-26] MEDS ORDERED: Tranexamic Acid 1,000 MG/10 ML VIAL ONE ×2 (08:38→11:53)
[2022-11-26] MEDS ORDERED: methylPREDNISolone Acetate 40 mg/ml Vial ONE (09:13)
[2022-11-26] MEDS ORDERED: CEFAZOLIN 2 GM VIAL ONE (09:30)
[2022-11-26] MEDS ORDERED: PROPOFOL 200 MG/20 ML VIAL ONE (09:40)
[2022-11-26] MEDS ORDERED: ePHEDrine Sulfate 50 MG/10 ML VIAL ONE (09:40)
[2022-11-26] MEDS ORDERED: PHENYLEPHRINE-NS 100 MCG/ML 10 ML SYRINGE ONE ×2 (09:40→10:08)
[2022-11-26] MEDS ORDERED: Lidocaine 1% PF 5 ML VIAL ONE (09:40)
[2022-11-26] MEDS ORDERED: Glycopyrrolate 0.2 MG/ML 5 ML SYRINGE ONE (09:40)
[2022-11-26] MEDS ORDERED: Ondansetron PF 4 MG/2 ML Vial ONE ×2 (09:40→10:14)
[2022-11-26] MEDS ORDERED: fentaNYL 50 mcg/mL 1 mL Vial SLOW IVP PRN (09:43)
[2022-11-26] MEDS ORDERED: Promethazine HCl 25 MG/ML VIAL IM PRN ×3 (09:45→11:25)
[2022-11-26] MEDS ORDERED: Zolpidem Tartrate 5 MG TAB PO PRN ×3 (09:45→12:50)
[2022-11-26] MEDS ORDERED: HYDROcodone/Acetaminophen 10/325 mg Tablet PO PRN ×2 (09:45)
[2022-11-26] MEDS ORDERED: Ropivacaine 0.2% 550 ML 550 ML NERVE BLCK SCH (09:45)
[2022-11-26] MEDS ORDERED: traMADol HCl 50 MG TAB PO PRN ×2 (09:45)
[2022-11-26] MEDS ORDERED: Ondansetron PF 4 MG/2 ML Vial IVP PRN ×2 (09:45→11:15)
[2022-11-26] MEDS ORDERED: Phenylephrine 10 MG/ML VIAL ONE (10:08)
[2022-11-26] MEDS ORDERED: diphenhydrAMINE 25 MG CAP PO PRN (11:15)
[2022-11-26] MEDS ORDERED: Tranexamic Acid 1,000 MG in Sodium Chloride 0.9% 100 ML IVPB SCH (11:15)
[2022-11-26] MEDS ORDERED: Acetaminophen 325 MG TAB PO PRN (11:15)
[2022-11-26] MEDS ORDERED: Ondansetron HCl/PF 4 MG/2 ML Vial IVP PRN (11:25)
[2022-11-26] MEDS ORDERED: Rosuvastatin 10 MG TAB PO SCH (11:30)
[2022-11-26] MEDS ORDERED: Ketorolac Tromethamine 30 MG/ML VIAL ONE (12:14)
[2022-11-26] MEDS ORDERED: DOXYCYCLINE MONOHYDRATE 40 MG PO PRN (12:47)
[2022-11-26] MEDS: Sodium Chloride 0.9% 1,000 ML IV SCH (14:45)
[2022-11-26] MEDS: Ketorolac Tromethamine 30 MG/ML VIAL IVP SCH ×3 (14:46→23:30)
[2022-11-26] MEDS: CEFAZOLIN 2 GM in Sodium Chloride 0.9% 100 ML IVPB SCH (17:21)
[2022-11-26] MEDS ORDERED: Vancomycin 1.5 GRAM/300 ML BAG 1.5 GM in Premix Bag 1 BAG IVPB SCH (21:00)
[2022-11-26] MEDS ORDERED: Non-Formulary Item 1 EACH (Zolpidem Tartrate [Zolpidem Tartrate] 10 MG Tablet) PO SCH (21:00)
[2022-11-26] MEDS: Calcium Carbonate 600 MG + Vit D TAB PO SCH (21:04)
[2022-11-26] MEDS: Aspirin 81 mg Enteric Coated Tablet PO SCH (21:04)
[2022-11-27] MEDS: Sodium Chloride 0.9% 1,000 ML IV SCH ×2 (00:47→10:22)
[2022-11-27] MEDS: CEFAZOLIN 2 GM in Sodium Chloride 0.9% 100 ML IVPB SCH (02:18)
[2022-11-27] MEDS: Ketorolac Tromethamine 30 MG/ML VIAL IVP SCH (05:51)
[2022-11-27 05:59] LABS: Hematocrit 33.6 % (42.0-52.0); Hemoglobin 11.1 g/dL (14.0-18.0); Mean Corpuscular Hemoglobin 31.4 pg (27.0-31.0); Mean Corpuscular Volume 94.9 fl (78.0-98.0); Mean Platelet Volume 10.7 fL (7.4-10.4); Platelet Count 200 10x3/uL (130-400); RBC Distribution Width 13.5 % (11.5-14.5); Red Blood Cell (RBC) Count 3.54 mill/uL (4.70-6.10); White Blood Cell (WBC) Count 9.7 10x3/uL (4.8-10.8)
[2022-11-27] MEDS ORDERED: Ferrous Gluconate 324 MG TAB PO SCH (08:00)
[2022-11-27 08:52] VITALS: BP 132/73
[2022-11-27] MEDS ORDERED: Tamsulosin HCl 0.4 MG CAP PO SCH (09:00)
[2022-11-27] MEDS ORDERED: CO Q-10 CAPSULE 100 MG PO SCH (09:00)
[2022-11-27] MEDS ORDERED: Multivitamin W/ Minerals 1 TAB PO SCH (09:00)
[2022-11-27] MEDS ORDERED: Senokot S 8.6-50 MG TAB PO SCH (09:00)
[2022-11-27] MEDS ORDERED: Isosorbide Mononitrate 30 MG ER.TAB PO SCH (09:00)
[2022-11-27] MEDS ORDERED: Ranolazine 500 MG ER.TAB PO SCH (09:00)
[2022-11-27] MEDS: Aspirin 81 mg Enteric Coated Tablet PO SCH (10:30)
[2022-11-27] MEDS: Calcium Carbonate 600 MG + Vit D TAB PO SCH (10:31)
[2022-11-27 10:42] VITALS: TEMP 97.7
== END 2022-11-27 14:20 | disposition home or self-care (01) ==
LOC: SDC 06:36 → SJJU 11:15
PROVIDERS: ADMIT Orthopaedic Surgery; ATTEND Orthopaedic Surgery
PROC: 0SRC0JZ Replacement of Right Knee Joint with Synthetic Substitute, Open Approach (ICD-10-PCS; principal; 2022-11-26)
PROC: 3E0U33Z Introduction of Anti-inflammatory into Joints, Percutaneous Approach (ICD-10-PCS; 2022-11-26)
DX: M17.0 Bilateral primary osteoarthritis of knee (principal); Z88.0 Allergy status to penicillin
CPT/HCPCS: 20610; 27447; 85027; 86850; 86900; 86901; 97110 ×2; 97116 ×2; 97530; A4306; C1776; J3010; J3370; 36415; J0171; J1030; J1885; J2001; J2250; J2370; J2405; J2704; J2795; J3490; S0020